=== PATIENT | female | born 1960 | race Caucasian/White ===

== ENCOUNTER → 2016-10-30 | Outpatient (CLI) | payer BC ==
[~2016-10-30] MED LIST: ALLEGRA 60MG TA60 MG PO; BREO IH; CALCIUM 600MG+D1 TAB PO; FERROUS SULFATE65 MG PO; MAGNESIUM ELEM300 MG PO; MIDRIN 325 MG-11 CAP PO; MIRAPEX 0.0.125 MG/T PO; MULTI VITAMINS1 TAB PO; NASONEX SPRAY17 GM NS; NEURONTIN300 MG/CAP PO; NORCO 325 MG-51 TAB PO; PROTONIX 40MG T40 MG PO; PYRIDIUM 100MG100 MG PO; TUDORZA IH
== END ==
LOC: MHCPAIN 11:56
DX: G89.29 Other chronic pain (principal); M41.9 Scoliosis, unspecified; M53.3 Sacrococcygeal disorders, not elsewhere classified; M47.817 Spondylosis without myelopathy or radiculopathy, lumbosacral region; M79.1 Myalgia
CPT/HCPCS: G0463

== ENCOUNTER → 2016-11-09 | Outpatient (CLI) | payer BC | LOC: MHCPAIN 09:51 | DX: M43.06 Spondylolysis, lumbar region (principal); M53.3 Sacrococcygeal disorders, not elsewhere classified | CPT/HCPCS: G0260; J1040; Q9967 ==

== ENCOUNTER → 2016-12-08 | Outpatient (CLI) | payer BC | LOC: MHCPAIN 09:03 | DX: G89.29 Other chronic pain (principal); M47.817 Spondylosis without myelopathy or radiculopathy, lumbosacral region; M53.3 Sacrococcygeal disorders, not elsewhere classified | CPT/HCPCS: G0463 ==